=== PATIENT | male | born 1965 | race Asian ===

== ENCOUNTER 2018-10-07 19:46 | Emergency (ER) | payer OTHER ==
[~2018-10-07] VITALS: Ht 167.6 cm; Wt 79.5 kg
[~2018-10-07 19:46] MED LIST: AMLO2.5T4 PO; ASPI-825 PO; ATOR40TA28 PO; GABA300T PO; GLIP2.5T17 PO; LIRA0.6P IM; LISI-661 PO; LORA0.5T2 PO; METF-446 PO; OMEP20TA25 PO; ROSU20TA23 PO; SITA100 PO
[2018-10-07 20:05] LABS: GLUCOSE,POINT OF CARE 338 MG/DL (70-110)
[2018-10-07 20:21] LABS: BASOPHILS % (AUTO) 0.5 % (0.0-2.0); EOSINOPHILS % (AUTO) 3.3 % (1.0-6.0); HEMATOCRIT 43.6 % (41-53); HEMOGLOBIN 14.7 g/dL (13.5-17.5); LYMPHOCYTES # (AUTO) 2.3 K/uL (1.0-4.8); LYMPHOCYTES % (AUTO) 28.5 % (22.0-44.0); MEAN CORPUSCULAR HGB CONC 33.6 G/dL (31.0-37.0); MEAN CORPUSCULAR VOLUME 86 fL (80-100); MONOCYTES # (AUTO) 0.8 K/uL (0.1-1.0); MONOCYTES % (AUTO) 9.5 % (2.0-9.0); NEUTROPHILS # (AUTO) 4.7 K/uL (1.8-7.7); NEUTROPHILS % (AUTO) 58.2 % (40.0-70.0); PLATELET COUNT (AUTO) 205 K/uL (150-450); RED BLOOD CELL COUNT(AUTO) 5.06 MIL/uL (4.50-5.90); RED CELL DISTRIBUTION WIDTH 13.7 % (11.5-14.5)
[2018-10-07 20:31] LABS: ANION GAP 8 mmol/L (8-16); CALCIUM, TOTAL 9.8 mg/dL (8.8-10.5); CARBON DIOXIDE 31 mmol/L (22-29); CHLORIDE 96 mmol/L (98-107); CREATININE 1.13 mg/dL (0.60-1.30); GLOMERULAR FILTR. RATE CALC > 60 mL/min (>60); GLUCOSE,RANDOM 307 mg/dL (70-110); POTASSIUM 4.1 mmol/L (3.5-5.1); SODIUM SERUM 135 mmol/L (136-145); UREA NITROGEN, BLOOD 19 mg/dL (7-18)
[2018-10-07 20:36] LABS: ALANINE AMINOTRANSFERASE 30 U/L (12-78); ALBUMIN 4.1 g/dL (3.4-5.0); ALKALINE PHOSPHATASE 106 U/L (46-116); ASPARTATE AMINOTRANSFERASE 17 U/L (15-37); BILIRUBIN,TOTAL 0.5 mg/dL (0.1-1.0); TOTAL PROTEIN, SERUM 7.8 g/dL (6.4-8.2)
[2018-10-07] MEDS ORDERED: SODIUM CHLORIDE 0.9% 1,000 ML IV ONE ×2 (21:42→21:45)
[2018-10-07] MEDS ORDERED: KETOROLAC TROMETHAMINE 30 MG/ML VIAL IVP ONE (21:45)
[2018-10-07 22:02] LABS: APPEARANCE,URINE CLEAR (CLEAR); BILIRUBIN,URINE NEGATIVE (NEGATIVE); GLUCOSE, URINE (UA) >=1000 mg/dL (NEGATIVE); KETONES,URINE NEGATIVE (NEGATIVE); LEUKOCYTE ESTERASE ,URINE NEGATIVE (NEGATIVE); NITRATE,URINE NEGATIVE (NEGATIVE); OCCULT BLOOD,URINE NEGATIVE (NEGATIVE); PH,URINE 6.5 (5.0-8.0); PROTEIN,URINE NEGATIVE (NEGATIVE)
[2018-10-07 22:05] LABS: THYROID STIMULATING HORMONE 2.04 uIU/mL (0.36-3.74)
[2018-10-07 22:11] LABS: BACTERIA,URINE None Seen /HPF (None Seen); RBC,URINE None Seen /HPF (0-2); SQUAMOUS EPITHELIAL CELL,UR None Seen /LPF (None Seen); WBC,URINE None Seen /HPF (0-5)
[2018-10-08 00:27] VITALS: BP 137/68
== END 2018-10-08 00:54 | disposition home or self-care (01) ==
LOC: EMS 19:47
DX: E11.65 Type 2 diabetes mellitus with hyperglycemia (principal); R07.89 Other chest pain; R53.1 Weakness; E78.00 Pure hypercholesterolemia, unspecified; I25.10 Atherosclerotic heart disease of native coronary artery without angina pectoris; I10 Essential (primary) hypertension; F41.9 Anxiety disorder, unspecified; Z79.899 Other long term (current) drug therapy; Z98.890 Other specified postprocedural states
CPT/HCPCS: 36415; 71045; 80053; 81001; 82962; 84443; 84484; 85025; 93005; 96361; 96374; 99284; J1885; J7030

== ENCOUNTER 2021-05-26 12:12 | Emergency (ER) | payer OTHER ==
[~2021-05-26] VITALS: Ht 167.6 cm; Wt 78.6 kg
[~2021-05-26 12:12] MED LIST changes: -AMLO2.5T4 PO; +AMLO2.5T96 PO; -LISI-661 PO; +LISI-893 PO; +LORA-999 PO; -LORA0.5T2 PO; +OMEP20TA20 PO; -OMEP20TA25 PO; -ROSU20TA23 PO; +ROSU20TA73 PO
[2021-05-26] MEDS ORDERED: DULA0.75 SQ (12:23)
[2021-05-26 12:26] VITALS: BP 145/75
== END 2021-05-26 13:57 | disposition home or self-care (01) ==
LOC: EMS 12:12
DX: S56.901A Unspecified injury of unspecified muscles, fascia and tendons at forearm level, right arm, initial encounter (principal); I10 Essential (primary) hypertension; E11.9 Type 2 diabetes mellitus without complications; E78.00 Pure hypercholesterolemia, unspecified; F41.9 Anxiety disorder, unspecified; Z79.899 Other long term (current) drug therapy; Z79.84 Long term (current) use of oral hypoglycemic drugs; X50.0XXA Overexertion from strenuous movement or load, initial encounter; Y93.89 Activity, other specified; Y92.89 Other specified places as the place of occurrence of the external cause; Y99.0 Civilian activity done for income or pay
CPT/HCPCS: 82962; 99283

== ENCOUNTER 2023-03-19 22:18 | Emergency (ER) | payer BC ==
[~2023-03-19] VITALS: Ht 167.6 cm; Wt 77.3 kg
[~2023-03-19 22:18] MED LIST changes: +DULA0.75 SQ; -GLIP2.5T17 PO; -LIRA0.6P IM; -LORA-999 PO; -OMEP20TA20 PO; -SITA100 PO
[2023-03-19 22:40] VITALS: TEMP 97.7
[2023-03-19 23:05] LABS: BASOPHILS % (AUTO) 0.7 % (0.0-2.0); EOSINOPHILS % (AUTO) 3.8 % (1.0-6.0); HEMATOCRIT 34.5 % (41-53); HEMOGLOBIN 11.2 g/dL (13.5-17.5); LYMPHOCYTES # (AUTO) 2.4 K/uL (1.0-4.8); LYMPHOCYTES % (AUTO) 24.3 % (22.0-44.0); MEAN CORPUSCULAR HEMOGLOBIN 28.4 pg (26.0-34.0); MEAN CORPUSCULAR HGB CONC 32.4 G/dL (31.0-37.0); MEAN CORPUSCULAR VOLUME 88 fL (80-100); MONOCYTES # (AUTO) 0.7 K/uL (0.1-1.0); MONOCYTES % (AUTO) 7.3 % (2.0-9.0); NEUTROPHILS # (AUTO) 6.3 K/uL (1.8-7.7); NEUTROPHILS % (AUTO) 63.9 % (40.0-70.0); PLATELET COUNT (AUTO) 213 K/uL (150-450); RED BLOOD CELL COUNT(AUTO) 3.93 MIL/uL (4.50-5.90); RED CELL DISTRIBUTION WIDTH 14.1 % (11.5-14.5); WHITE BLOOD COUNT (AUTO) 9.8 K/uL (4.5-11.0)
[2023-03-19] MEDS ORDERED: HYDROCODONE/ACETAMINOPHEN 5-325 MG TABLET PO ONE (23:15)
[2023-03-19] MEDS ORDERED: KETOROLAC TROMETHAMINE 60 MG/2 ML VIAL IM ONE (23:15)
[2023-03-19 23:16] LABS: CALCIUM, TOTAL 9.4 mg/dL (8.8-10.5); CREATININE 1.46 mg/dL (0.60-1.30); POTASSIUM 4.5 mmol/L (3.5-5.1)
[2023-03-19 23:28] LABS: TROPONIN I-HIGH SENSITIVITY 6 ng/L (<76)
[2023-03-19] MEDS ORDERED: METH-659 PO (23:50)
[2023-03-19] MEDS ORDERED: HYDR-4723 PO (23:50)
[2023-03-19] MEDS ORDERED: IBUP-1554 PO (23:50)
[2023-03-19] MEDS ORDERED: GABA-1181 PO (23:53)
[2023-03-20] VITALS: BP 124/78; PULSE 81; RESP 17
== END 2023-03-20 00:01 | disposition home or self-care (01) ==
LOC: EMS 22:19
DX: S29.012A Strain of muscle and tendon of back wall of thorax, initial encounter (principal); E11.22 Type 2 diabetes mellitus with diabetic chronic kidney disease; E11.65 Type 2 diabetes mellitus with hyperglycemia; I13.10 Hypertensive heart and chronic kidney disease without heart failure, with stage 1 through stage 4 chronic kidney disease, or unspecified chronic kidney disease; N18.9 Chronic kidney disease, unspecified; F41.9 Anxiety disorder, unspecified; E78.00 Pure hypercholesterolemia, unspecified; Z98.890 Other specified postprocedural states; X58.XXXA Exposure to other specified factors, initial encounter; Y93.89 Activity, other specified; Y92.89 Other specified places as the place of occurrence of the external cause; Y99.8 Other external cause status
CPT/HCPCS: 99285; 71045; 80048; 82962; 84484; 85025; 36415; 73030; 93005; 96372; J1885

== ENCOUNTER 2023-11-11 22:17 | Emergency (ER) | payer BC ==
[~2023-11-11] VITALS: Ht 167.6 cm; Wt 77.3 kg
[~2023-11-11 22:17] MED LIST changes: +GABA-1181 PO; +HYDR-4062 PO; +METH-659 PO
[2023-11-11 22:25] VITALS: BP 168/92; PULSE 105; RESP 16; TEMP 98.4; O2SAT 99
[2023-11-12] MEDS: KETOROLAC TROMETHAMINE 60 MG/2 ML VIAL IM ONE (00:21)
[2023-11-12] MEDS ORDERED: IBUP-1492 PO (00:44)
== END 2023-11-12 01:23 | disposition home or self-care (01) ==
LOC: EMS 22:18
DX: S01.03XA Puncture wound without foreign body of scalp, initial encounter (principal); E11.9 Type 2 diabetes mellitus without complications; I10 Essential (primary) hypertension; W01.0XXA Fall on same level from slipping, tripping and stumbling without subsequent striking against object, initial encounter; Y93.89 Activity, other specified; Y92.89 Other specified places as the place of occurrence of the external cause; Y99.8 Other external cause status
CPT/HCPCS: 99283; 82962; 96372; J1885

== ENCOUNTER 2024-01-21 20:23 | Emergency (ER) | payer BC ==
[~2024-01-21] VITALS: Ht 167.6 cm; Wt 77.3 kg
[~2024-01-21 20:23] MED LIST changes: -DULA0.75 SQ; -GABA-1181 PO; -HYDR-4062 PO; +IBUP-1492 PO; -LISI-893 PO; -METH-659 PO; -ROSU20TA73 PO; +ROSU20TA98 PO
[2024-01-21 20:29] VITALS: TEMP 97.7
[2024-01-21 22:47] LABS: BASOPHILS % (AUTO) 0.4 % (0.0-2.0); EOSINOPHILS % (AUTO) 3.8 % (1.0-6.0); LYMPHOCYTES # (AUTO) 2.1 K/uL (1.0-4.8); LYMPHOCYTES % (AUTO) 22.3 % (22.0-44.0); MEAN CORPUSCULAR HEMOGLOBIN 28.4 pg (26.0-34.0); MEAN CORPUSCULAR HGB CONC 32.6 G/dL (31.0-37.0); MEAN CORPUSCULAR VOLUME 87 fL (80-100); MONOCYTES # (AUTO) 0.7 K/uL (0.1-1.0); MONOCYTES % (AUTO) 7.5 % (2.0-9.0); NEUTROPHILS # (AUTO) 6.3 K/uL (1.8-7.7); PLATELET COUNT (AUTO) 194 K/uL (150-450); RED BLOOD CELL COUNT(AUTO) 4.24 MIL/uL (4.50-5.90); RED CELL DISTRIBUTION WIDTH 14.1 % (11.5-14.5); WHITE BLOOD COUNT (AUTO) 9.5 K/uL (4.5-11.0)
[2024-01-21] MEDS: KETOROLAC TROMETHAMINE 30 MG/ML VIAL IM ONE (22:50)
[2024-01-21] MEDS: TraMADol HCL 50 MG TABLET PO ONE (22:50)
[2024-01-21] MEDS: LIDOCAINE 5% TRANSDERMAL PATCH TD ONE (22:51)
[2024-01-21 22:55] LABS: CALCIUM, TOTAL 8.8 mg/dL (8.8-10.5); CREATININE 1.75 mg/dL (0.60-1.30); POTASSIUM 4.8 mmol/L (3.5-5.1)
[2024-01-21 23:03] LABS: TROPONIN I-HIGH SENSITIVITY 6 ng/L (<76)
[2024-01-22] MEDS: SODIUM CHLORIDE 0.9% 1,000 ML IV ONE (00:24)
[2024-01-22] MEDS: INSULIN REGULAR, HUMAN 100 UNITS/ML IVP ONE (00:29)
[2024-01-22 03:05] VITALS: BP 144/85; PULSE 103; RESP 16; O2SAT 98
[2024-01-22] MEDS ORDERED: CYCL-448 PO (03:25)
[2024-01-22 04:11] LABS: GLUCOMETER DEV NAME(LOC) ER.7; GLUCOSE,POINT OF CARE 403 MG/DL (70-110)
== END 2024-01-22 03:41 | disposition home or self-care (01) ==
LOC: EMS 20:23
DX: S39.012A Strain of muscle, fascia and tendon of lower back, initial encounter (principal); E11.65 Type 2 diabetes mellitus with hyperglycemia; F41.9 Anxiety disorder, unspecified; I10 Essential (primary) hypertension; E78.00 Pure hypercholesterolemia, unspecified; Z98.890 Other specified postprocedural states; Z79.899 Other long term (current) drug therapy; Z79.84 Long term (current) use of oral hypoglycemic drugs; Z79.82 Long term (current) use of aspirin; X58.XXXA Exposure to other specified factors, initial encounter; Y93.89 Activity, other specified; Y92.89 Other specified places as the place of occurrence of the external cause; Y99.8 Other external cause status
CPT/HCPCS: 99284; 80048; 82962 ×2; 84484; 85025; 36415; 93005; 96372; 96374; 96361; J1885; J1815; J7030

== ENCOUNTER 2024-06-23 20:58 | Emergency (ER) | payer BC ==
[~2024-06-23] VITALS: Ht 162.6 cm; Wt 79.5 kg
[~2024-06-23 20:58] MED LIST changes: +CYCL-448 PO
[2024-06-23 21:34] VITALS: TEMP 98.1
[2024-06-24] MEDS: SULFAMETHOX/TRIMETH DS 800-160 MG/TABLET PO ONE (00:55)
[2024-06-24] MEDS: IBUPROFEN 400 MG TABLET PO ONE (00:55)
[2024-06-24] MEDS: AMOX TR/POT CLAV 875 MG/125 MG TABLET PO ONE (00:56)
[2024-06-24 01:25] VITALS: BP 115/71; PULSE 84; RESP 16; O2SAT 98
[2024-06-24] MEDS ORDERED: SULF-261 PO (01:31)
[2024-06-24] MEDS ORDERED: AMOX-457 PO (01:31)
== END 2024-06-24 01:56 | disposition home or self-care (01) ==
LOC: EMS 20:58
DX: H00.031 Abscess of right upper eyelid (principal); L03.213 Periorbital cellulitis; E11.9 Type 2 diabetes mellitus without complications; I10 Essential (primary) hypertension; E78.00 Pure hypercholesterolemia, unspecified; E78.5 Hyperlipidemia, unspecified; I25.10 Atherosclerotic heart disease of native coronary artery without angina pectoris; Z79.82 Long term (current) use of aspirin; Z79.84 Long term (current) use of oral hypoglycemic drugs; Z79.899 Other long term (current) drug therapy
CPT/HCPCS: 99284; Z7502; Z7610